=== PATIENT | male | born 1955 | race Caucasian/White ===

== ENCOUNTER 2024-10-12 22:30 | Emergency (ER) | payer MEDICARE, SELFPAY ==
[2024-10-12 22:33] VITALS: BP 138/72; PULSE 67; RESP 18; TEMP 36.7; O2SAT 99
[2024-10-12 23:11] VITALS: BP 124/80; PULSE 61; RESP 13; TEMP 36.6; O2SAT 97; O2SAT 98
[2024-10-12] MEDS: dexAMETHasone SOD PHOS INJ 10 MG/ML 1 ML VIAL IM (23:34)
[2024-10-12] MEDS: diphenhydrAMINE HCl INJ 50 MG/ML VIAL IM (23:35)
[2024-10-12] MEDS: FAMOTIDINE 20 MG TABLET PO (23:35)
--- OUTSIDE RECORDS SUMMARY | 2024-10-12 23:48 | XMS_ITS | Referral Summary ---
Author Organization [facility] Address [address] [place] [address] Care Team Providers Care Electric Motor Winders Assembler Name Role Phone Lee Johnson MD Primary Care Provider Encounters Date Type Department Care Team Description 09/20/2024 ACO Quality [facility] Accountable Care Organization [address] [place] [id number] [facility] [place], [place] 09/15/2024 Telephone [facility] Medical [facility] Primary Care at [address] [address] Lee Johnson MD Prior Auth (Medication Mupirocin 2 %) 09/12/2024 10:00 AM CDT Office Visit [facility] Primary [facility] at [address] [address] Bony Rubio MD Cellulitis of hand excluding fingers (Primary Dx); Type 2 diabetes mellitus without complication, without long-term current use of insulin (HCC) 07/13/2024 10:30 AM CDT Office Visit [facility] at [address] [phone] Lee Johnson MD Annual physical exam (Primary Dx); BMI 30.0-30.9,adult; Multiple-type hyperlipidemia; Primary open angle glaucoma (POAG) of left eye, mild stage; Primary open angle glaucoma (POAG) of right eye, moderate stage; Sensorineural hearing loss (SNHL), bilateral; Type 2 diabetes mellitus without complication, without long-term current use of insulin (HCC) from Last 3 Months Allergies No known active allergies Medications dorzolamide-bhavna olol (COSOPT) 22.3-6.8 mg/mL ophthalmic solution Administer 1 drop into both eyes 2 (two) times a day 7 Active latanoprost (XALATAN) 0.005 % ophthalmic solution Administer 1 drop into both eyes nightly 7 Active loratadine (CLARITIN) 10 mg tablet Take 1 tablet (10 mg total) by mouth daily Active fluocinonide (LIDEX) 0.05 % external solution APPLY TOPICALLY TO THE AFFECTED AREA TWICE DAILY NEEDED 3 Active dorzolamide (TRUSOPT) 2 % ophthalmic solution 1 drop 2 (two) times a day 2 Active ketoconazole (NIZORAL) 2 % shampoo 3 Active Vyzulta 0.024 % drops 0.05 mL (1 drop total) nightly 4 Active mometasone (ELOCON) 0.1 % cream Apply topically daily Apply to both ears daily for drainage and itching 45 g 2 5 Active metFORMIN (GLUCOPHAGE) 500 mg tabletIndicatio ns:type 2 diabetes mellitus TAKE 1 TABLET(500 MG) BY MOUTH DAILY WITH BREAKFAST 90 tablet 1 5 Active atorvastatin (LIPITOR) 20 mg tablet TAKE 1 TABLET(20 MG) BY MOUTH DAILY 90 tablet 1 5 Active mupirocin (BACTROBAN) 2 % ointment Apply topically 3 (three) times a day 22 g 5 Active cephalexin (KEFLEX) 500 mg capsule Take 2 capsules (1,000 mg total) by mouth 2 (two) times a day for 10 days 40 capsule 5 09/23/19 25 Active Problems Problem Noted Date Diagnosed Date Sensorineural hearing loss (SNHL), bilateral 09/2022 Chronic eczematous otitis externa of both ears 0 10/06/2022 Bilateral impacted cerumen 06/11/2022 Assessment & Plan (06/11/2022 9:56 PM ULTRASOUND TECH): Avoid ear cleaning techniques Avoid water to ears Follow up in one year or earlier with any drainage Sensorineural hearing loss ( SNHL) of left ear with restricted hearing of right ear 06/11/2022 Assessment & Plan (06/11/2022 9:58 PM ULTRASOUND TECH): Continue hearing aids Acute diffuse otitis externa of left ear 022 Assessment & Plan (06/11/2022 11:42 AM ULTRASOUND TECH): Avoid ear cleaning techniques Avoid water to ears Follow up in one year or earlier with any drainage Medicare annual wellness visit, subsequent 12/06 Type 2 diabetes mellitus wit hout complication, without long-term current use of insulin 05/24/2019 Assessment & Plan (09/12/2024 10:14 AM CDT): Lab Results Component Value Date HGBA1C 5.9 (H) 07/05/2024 HGBA1C 6.0 (H) 01/04/2024 HGBA1C 6.1 (H) 06/29/2023 Lab Results Component Value Date MICROALBUR 0.5 11/25/2020 LDLCALC 103 07/05/2024 CREATININE 0.96 07/05/2024 At goal Continue metformin Pt has never reached A1c of 6.5 Usnure when dx was made Assessment & Plan (02/12/2021 10:27 PM CDT): Lab Results Component Value Date HGBA1C 5.6 11/25/2020 Good control Defers dilation today Assessment & Plan (01/26/2020 1:21 PM CDT): Lab Results Component Value Date HGBA1C 5.7 (H) 05/05/2019 No retinopathy Assessment & Plan (05/24/2019 9:56 PM ULTRASOUND TECH): No retinopathy Hgb A1C= 5.7 CPM Primary open angle glaucoma (POAG) of left eye, mild stage 06/16/2018 Assessment & Plan (07/28/2023 9:09 PM CDT): Excellent intraocular pressure (IOP) on vyzulta and cosopt Evans visual field (HVF) remains RNFL with possible minor progression of inferior polar thinning over period of 3 years, will observe SLT is an option left eye (OS) also CPM Assessment & Plan (02/12/2021 10:27 PM CDT): OCT with ? Sup thinning left eye (OS) over past several years Evans visual field (HVF) stable CPM Assessment & Plan (01/26/2020 1:20 PM CDT): intraocular pressure (IOP) acceptable CPM Evans visual field (HVF) and OCT without change Assessment & Plan (05/24/2019 9:56 PM ULTRASOUND TECH): IOP acceptable in mid-teens with pre-perimetric dz unless documented progression. Assessment & Plan (02/15/2019 4:49 PM CDT): IOP likely acceptable in mid-teens with pre-perimetric dz unless documented progression. Assessment & Plan (06/16/2018 8:53 PM ULTRASOUND TECH): intraocular pressure (IOP) likely acceptable in mid-teens with pre-perimetric dz unless documented progression. 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 Beck Assessment & Plan (02/12/2021 10:26 PM CDT): intraocular pressure (IOP) remains stable in low-mid teens, no change of OCT but Evans visual field (HVF) suggests progression. Hx of long-term fluctuations of visual field (VF) F/U 4 months with repeat Evans visual field (HVF) right eye (OD) Assessment & Plan (01/26/2020 1:20 PM CDT): intraocular pressure (IOP) acceptable on 3 classes Defer SLT OCT and Evans visual field (HVF) stable F/U with Dr. Beck and with me annually for now Assessment & Plan (05/24/2019 9:55 PM ULTRASOUND TECH): IOP excellent today on 3 classes -- recently has had IOP mid teens, were considering SLT, but will hold off for now -- HVF OD stable -- CPM RTC [address] Beck and here in 8 months with OCT, DFE Assessment & Plan (02/16/2019 3:42 PM CDT): ? tmax 21 with avg - sl thick CCT No FH HVF today is borderline reliability, looks slightly worse - note different refractions between visits but this is consistent with his new MRX OCT stable IOP is better today- discussed repeat SLT (last done 4 years ago) to flatten his IOP curve as he has been running higher than this previously on the same regimen Continue xalatan/cosopt both eyes (OU) F/U 2-3 months with repeat Evans visual field (HVF) right eye (OD) Assessment & Plan (06/16/2018 8:53 PM ULTRASOUND TECH): ? tmax 21 with avg - sl thick CCT No FH ? Progression at mid-teens. Need to review Dr. Beck's visual field (VF) and OCT CPM for now ? Repeat SLT if improvement Pt to call in 2 wks to F/u with report Multiple-type hyperlipidemia 09/09/2013 Overview (08/01/2016): MIXED HYPERLIPIDEMIA Atopic rhinitis 04/07/2012 Overview (08/01/2016): ALLERGIC RHINITIS NOS Resolved Problems Problem Noted Date Diagnosed Date Resolved Date Prediabetes 02/14/2019 12/06/2020 Assessment & Plan (02/14/2019 9:02 AM CDT): Hemoglobin A1c at 5.8% when recently checked on 01/21/2019. Given visual disturbances, progressive glaucoma concerns motor vehicle emissions inspector recommending treatment for pre DM with metformin 500 mg q.day. Dietary and exercise modifications were strongly encouraged lifestyle changes alone would be able to improve visual disturbances if related to DM. S/Es of medication was discussed (including concerns of looser stools). Adding on hemoglobin A1c and urine with micro in 3 months with labs scheduled on 05/05/2019. Immunizations Immunization Administration Dates Next Due Influenza, Quad, Adjuvantate d, Intramuscular 03/05/2022 Influenza, Quadrivalent, Hig h Dose, Preservative Free, Intrr 01/07/2023 Influenza, Quadrivalent, Spl it, Intramuscular 04/10/2016,01/31/2010 Influenza, Quadrivalent, Spl it, Preservative Free, Intramuscular 03/11/2021,03/05/2020,02/10/2018 Influenza, Split 01/31/2010 Influenza, Trivalent, High D ose, Split, Preservative Free, Intramuscular 01/14/2024 Influenza, Trivalent, IM (MDV) 02/27/2011 Influenza, Unspecified 12/06/2020(Deferr ed: Patient Refused),01/13/2019,02/08/2018, 017 Pfizer SARS-CoV-2 Monovalent Vaccination (12+ Yrs) PURPLE 07/05/2020,06/06/2020,06/06/2020 Pneumococcal Conjugate PCV 13 12/06/2020 Pneumococcal Conjugate Pcv20 07/08/2023 Tdap 03/05/2020 ZOSTER LIVE 06/20/2015 Social History Tobacco Use Types Packs/Day Years Used Date Smoking Tobacco: Never Smokeless Tobacco: Never Tobacco Cessation:Counseling Given: Not Answered Alcohol Use Standard Drinks/Week Comments Yes 0 (1 standard drink = 0.6 oz pur e alcohol) AUDIT-C Answer Date Recorded Q1: How often do you have a drink containing alcohol? Never 07/08/2023 Q2: How many drinks containi ng alcohol do you have on a typical day when you are drinking? Patient does not drink Q3: How often do you have si x or more drinks on one occasion? 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 [employer] Not on file Not on file Not on file Last Filed Vital Signs Vital Sign Reading Time Taken Comments Blood Pressure 104/70 09/12/2024 9:57 AM CDT Pulse 60 09/12/2024 9:57 AM CDT Temperature 36.4 C (97.5 F) 07/13/2024 10:27 AM CDT Respiratory Rate 16 09/12/2024 9:5 7 AM CDT Oxygen Saturation 98% 09/12/2024 9:57 AM CDT Inhaled Oxygen Concentration - - Weight 108.8 kg (239 lb 14.4 oz) 09/12/2024 9:57 AM CDT Height 190.5 cm (6' 3) 09/12/2024 9:57 AM CDT Body Mass Index 29.99 09/12/2024 9:57 AM CDT Plan of Treatment Not on file Procedures Procedure Name Priority Date/Time Associated Diagnosis Comments EGFR Routine 07/05/2024 8:33 AM CDT Type 2 diabetes mellitus without complication, without long-term current use of insulin (HCC) HEMOGLOBIN A1C Routine 07/05/2024 8:33 AM CDT Type 2 diabetes mellitus without complication, without long-term current use of insulin (HCC) LIPID PANEL Routine 07/05/2024 8:33 AM CDT Type 2 diabetes mellitus without complication, without long-term current use of insulin (HCC) Multiple-type hyperlipidemia ALBUMIN CREATININE RATIO, URINE Routine 07/05/2024 8:33 AM CDT Type 2 diabetes mellitus without complication, without long-term current use of insulin (HCC) PSA SCREEN Routine 07/05/2024 8:33 AM CDT Urine frequency DIABETIC EYE EXAM Routine 02/28/2024 COLONOSCOPY IMAGES 06/29/2016 SERUM HEPATITIS C AB Routine 03/29/2014 7:40 AM ULTRASOUND TECH from Last 3 Months or Most Recently Relevant to Health Maintenance Results * eGFR (07/05/2024 8:33 AM CDT) eGFR 86 >=60 mL/min/1. 73 m2 Comment: Interpretive Data Reference Interval Normal >/= 90 mL/min/1.73m2 Mildly decreased* 60 - 89 mL/min/1.73m2 Mildly to moderately decreased 45 - 59 mL/min/1.73m2 Moderately to severely decreased 30 - 44 mL/min/1.73m2 Severely decreased 15 - 29 mL/min/1.73m2 Kidney Failure < 15 mL/min/1.73m2 *Relative to young adult level Estimated glomerular filtration rate is determined by the 2020 CKD-EPI equation recommended by the National Kidney Foundation (A Unifying Approach to GFR Estimation: Recommendations of the NKF-ASK Task Force on Reassessing the Inclusion of Race in Diagnosing Kidney Disease, JASN 2020). The CKD-EPI equation should not be used for patients with unstable renal function and has not been validated in children and those over 70. Current interpretive data was last reviewed 2021. Blood 07/05/2024 8:33 AM CDT 07/05/2024 7:12 PM CDT us Lee Johsnon MD LAB BLOOD ORDERABLES Fi nal Result [facility] [id number] Department [place] [address] * PSA screen (07/05/2024 8:33 AM CDT) PSA-Total 2.52 <=5.40 ng/mL Comment: Interpretive Data AGE SEX REFERENCE INTERVAL 0 minutes-150 years Female None 0 minutes-49 years Male None 50-59 years Male 0-3.90 60-69 years Male 0-5.40 70-79 years Male 0-6.20 80-150 years Male 0-6.20 The Sunshine PSA Total assay procedure was used. Results from different manufacturers or methods may not be comparable. Serial testing should be performed using the same method. Current interpretive data last revised 21. Blood 07/05/2024 8:33 AM CDT 07/05/2024 7:06 PM CDT Lee Johnson MD LAB BLOOD ORDERABLES Fi nal Result Performing Organization Address [facility] de Phone Number [facility] [address] [place], [place] [id number] * Albumin Creatinine Ratio, Urine (07/05/2024 8:33 AM CDT) Albumin Ur <12.0 mg/L Comment: Interpretive Data No reference range established. Current interpretive data was last revised 2018. Creatinine Ur 103.9 mg/dL [facility] Comment: Interpretive Data No reference range established. Current interpretive data was last revised 2018. Albumin Creatinine Ratio, Ur <12 1 - 29 mg/g [facility] Urine 07/05/2024 8:33 AM CDT 07/05/2024 7:06 PM CDT Lee Johnson MD LAB URINE ORDERABLES Fi nal Result Performing Organization Address [facility] de Phone Number [facility] [id number] [address] [facility] [place] [address] * (ABNORMAL) Hemoglobin A1c (07/05/2024 8:33 AM CDT) Hgb A1C 5.9(H) 4.0 - 5.6 % Estimated Average Glucose 123 mg/dL [facility] Comment: The ADA recommends reporting an estimated Average Glucose (eAG) with all Hemoglobin A1c results using the equation derived from a study of 507 normal and diabetic adults. Minority populations were underrepresented and children were not included. (Diabetes Care 31:3925-4151, 2008). The eAG is not equivalent to a fasting glucose. Blood 07/05/2024 8:33 AM CDT 07/05/2024 7:06 PM CDT Lee Johnson MD LAB BLOOD ORDERABLES Fi nal Result [facility]B[id number] [place] [address] * Lipid panel (07/05/2024 8:33 AM CDT) Cholesterol 167 30 - 199 mg/dL Comment: Interpretive Data Ages < or = 19 years Acceptable: <170 mg/dL Borderline high: 170-199 mg/dL High: >or= 200 mg/dL Ages > or = 20 years Desirable: <200 mg/dL Borderline high: 200-239 mg/dL High: >or= 240 mg/dL Literature References: 1. Expert Panel on Integrated Guidelines for Cardiovascular Health and Risk Reduction in Children and Adolescents. Pediatrics 2011;128:S213 2. NCEP Expert Panel. Circulation 2004;110:227 Current Interpretive Data was last revised on 2017. Triglycerides 94 <=149 mg/dL [facility] ROBBINS Comment: Interpretive Data Ages < or = 9 years Acceptable: <75 mg/dL Borderline high: 75-99 mg/dL High: >or= 100 mg/dL Ages 10 to 20 years Acceptable: <90 mg/dL Borderline high: 90-129 mg/dL High: >or= 130 mg/dL Ages > or = 20 years Desirable: <150 mg/dL Borderline high: 150-199 mg/dL High: 200-499 mg/dL Very high: >or= 499 mg/dL Literature References: 1. Expert Panel on Integrated Guidelines for Cardiovascular Health and Risk Reduction in Children and Adolescents. Pediatrics 2011;128:S213 2. NCEP Expert Panel. Circulation 2004;110:227 Current Interpretive Data was last revised on 2017. HDL 47 >=40 mg/dL [facility] ROBBINS Comment: Interpretive Data Ages < or = 19 years Acceptable: >45 mg/dL Borderline low: 40-45 mg/dL Low: <40 mg/dL Ages > or = 20 years Desirable: >or= 60 mg/dL Low: <40 mg/dL Literature References: 1. Expert Panel on Integrated Guidelines for Cardiovascular Health and Risk Reduction in Children and Adolescents. Pediatrics 2011;128:S213 2. NCEP Expert Panel. Circulation 2004;110:227 Current Interpretive Data was last revised on 2017. LDL, calculated 103 <=129 mg/dL [facility] ROBBINS Comment: Interpretive Data Ages < or = 19 years Acceptable: <110 mg/dL Borderline high: 110-129 mg/dL High: >or= 130 mg/dL Ages > or = 20 years Optimal: <100 mg/dL Near optimal: 100-129 mg/dL Borderline high: 130-159 mg/dL High: >160 mg/dL Calculated using the Javier LDL-C estimating equation. This equation was implemented on 2023. Prior to this date LDL-C was estimated using the Friedewald equation. Literature References: 1. Expert Panel on Integrated Guidelines for Cardiovascular Health and Risk Reduction in Children and Adolescents. Pediatrics 2011;128:S213 2. NCEP Expert Panel. Circulation 2004;110:227 3. Javier Elizondo et al. TASHIA Cardiol. 2019August 24;5(5):540-548. doi: 10.1001/jamacardio.2020.0013 Current Interpretive Data was last revised on 2023. Non-HDL Cholesterol 120 mg/dL [facility] ROBBINS Comment: Interpretive Data Ages < or = 19 years Acceptable: <120 mg/dL Borderline high: 120-144 mg/dL High: >145 mg/dL Ages > or = 20 years When triglycerides are >200 mg/dL, Non-HDL cholesterol is a secondary target of therapy with treatment goals that are 30 mg/dL greater than the LDL cholesterol target. Literature References: 1. Expert Panel on Integrated Guidelines for Cardiovascular Health and Risk Reduction in Children and Adolescents. Pediatrics 2011;128:S213 2. NCEP Expert Panel. Circulation 2004;110:227 Current Interpretive Data was last revised on 2017. Chol/HDL ratio 4 [facility] ROBBINS Blood 07/05/2024 8:33 AM CDT 07/05/2024 7:06 PM CDT Narrative ROS[facility] ROBBINS - 07/05/2024 7:50 PM CDT Has the patient been fasting for 8 hours or more?->Yes Lee Johnson MD LAB BLOOD ORDERABLES Fi nal Result [facility] [id number] [place] [address] * Diabetic Eye Exam (02/28/2024) us Generic External Data Provider HEALTH MAINTENANC E Final Result * COLONOSCOPY IMAGES (06/29/2016) Anatomical Region Laterality Modality Other Narrative 06/29/2016 Ordered by an unspecified provider. Historical Provider GI PROCEDURE ORDERABLES F inal Result * Serum Hepatitis C ab (03/29/2014 7:40 AM ULTRASOUND TECH) HCV ab Negative Negative HISTORICAL RESULTS Serum 03/29/2014 7:40 AM ULTRASOUND TECH Lee Johnson MD LAB BLOOD ORDERABLES Fi nal Result Performing Organization Address [facility] Co de Phone Number HISTORICAL RESULTS from Last 3 Months or Most Recently Relevant to Health [place] [address] AET MEDICARE [facility] MEDICARE [facility] MEDICARE Care Teams Electric Motor Winders Assembler Relationship Specialty Start Date End Date Lee Johnson MD PCP - General 07/24/16
--- OUTSIDE RECORDS SUMMARY | 2024-10-12 23:49 | XMS_ITS | Encounter Summary ---
Author Organization [facility] Address [address] [place] [address] Phone Care Team Providers Care Carrier Operator Name Role Phone Lee Johnson MD Primary Care Provider Encounter Details Date Type Department Care Team (Late st Contact Info) Description 04/30/2017 Orders Only [facility] ProviderRupesh [place] [address] Social History Tobacco Use Types Packs/Day Years Used Date Smoking Tobacco: Never Smokeless Tobacco: Never Alcohol Use Standard Drinks/Week Comments Yes 0 (1 standard drink = 0.6 oz pur e alcohol) Sex and Gender Information Value Date Recorded Sex Assigned at Not on file Legal Sex Male 4:16 PM SKIDWAY MAN Gender Identity Not on file Sexual Orientation Not on file documented as of this encounter Plan of Treatment Not on file documented as of this encounter Procedures Procedure Name Priority Date/Time Associated Diagnosis Comments DISCHARGE LABORATORY CUMULATIVE REPORT 04/30/2017 12:00 AM SKIDWAY MAN documented in this encounter Results * DISCHARGE LABORATORY CUMULATIVE REPORT (04/30/2017 12:00 AM SKIDWAY MAN) Narrative 04/30/2017 12:00 AM SKIDWAY MAN Ordered by an unspecified provider. Historical Provider LAB BLOOD ORDERABLES Tari l Result documented in this encounter Visit Diagnoses Not on filedocumented in this encounter Additional Health Concerns Infection Onset Date Last Indicated Resolved Time COVID: Suspected 01/02/2022 01/02/2022 01/02/2022 7:05 PM CDT COVID: Suspected 01/02/2022 01/02/2022 01/02/2022 7:07 PM CDT COVID19 01/02/2022 01/02/2022 01/12/2022 3:05 AM CDT COVID: Recovered Comment:Added based on recent COVID infection. 01/12/2022 01/12/2022 05/12/2022 3:[address] documented as of this encounter Care Teams Carrier Operator Relationship Specialty Start Date End Date Lee Johnson MD PCP - General 07/24/16 documented as of this encounter
--- OUTSIDE RECORDS SUMMARY | 2024-10-12 23:49 | XMS_ITS | Continuity of Care Document ---
Author Organization [facility] [place] [address] [place] [address] Phone Care Team Providers Care Framing Consultant Name Role Phone Tommy Beck MD, MD Unavailable Unavailab le Allergies, Adverse Reactions, Alerts Substance Reaction Status Criticality levonorgestrel Active No Informatio n ethinyl estradiol Active No Informa tion Medications Medication Instructions Dosage Effective Dates (start - stop) Status Comments dorzolamide-timolol 2 %-0.5 % eye drops instill 1 drop by ophthalmic route 2 times every day into both eyes 1 drop - Active atorvastatin 10 mg tablet take 1 tablet by oral route every day 10 MG - Active Procedures Procedure Date Post-op Follow-up Visit Post-op Follow-up Visit Post-op Follow-up Visit Laser Surgery Of Eye Post-op Follow-up Visit Laser Surgery Of Eye Eye Exam, New Patient Corneal Pachymetry Special Eye Evaluation Advance Directives Directive Yes / No Effective Date File Name No Information Encounters Encounter Description Practice Location Reason(s) For Visit Diagnoses Date Provider Providers Copied on Encounter [facility], [address], [place], [place], [id number], [place] tel:[phone] SEC Milam SARAH Professional F/u exam, postop (chief complaint) Follow-up examination after surgery -201 5 Ebony Sanders. [address], [address], [place], [place], [facility], . tel:[phone] Referring Provider: Brandy Dyson, [address], [address]. tel:[phone] [facility], [address] [place] [address] [address], [place], [place], [id number], tel:[phone] SEC Milam [place] Professional F/u exam, postop (chief complaint) Follow-up examination after surgery 5 Ebony Sanders. [address], [address] [facility], [place], [place], [facility], [place]. tel:[phone] Referring Provider: Brandy Dyson, [address], [address]. tel:[phone] [facility], [address] [place] [address] [address], [place], [place], [id number], [place] tel:[phone] SEC Harinder [place] Professional Procedure (chief complaint) Primary open angle glaucoma 5 Ebony Sanders. [address], [address] [place] [address], [facility], [place]. tel:[phone] Referring Provider: Brandy Dyson, [address], [address]. tel:[phone] [facility], [address] [place] [address] [address], [place], [place], [id number], tel:[phone] SEC Harinder [place] Professional F/u exam, postop (chief complaint) Follow-up examination after surgery 5 Ebony Sanders. [address], [address], [place], [facility], [place]. tel:[phone] Referring Provider: Brandy Dyson, [address], [address]. tel:[phone] [facility], [address] [place] [address] [address], [place], [place], [id number], tel:[phone] SEC Harinder SMITH Professional SLT (chief complaint) Primary open angle glaucomaMode rate stage glaucoma Ebony Sanders. [address] [facility], [address], [place], [address], . tel:[phone] Referring Provider: Brandy Dyson, [address], [address]. tel:[phone] [facility], [address] [place] [address] [address], [place], [id number], tel:[phone] SEC Harinder SMITH Professional Glaucoma Evaluation (chief complaint) Primary open angle glaucomaMode rate stage glaucoma 4 Ebony Sanders. [address] [facility], [address] [place] [address], [address], . tel:[phone] Referring Provider: Brandy Dyson, [address], [address]. tel:[phone] [facility], [address] [place], [place] [address], [place], [id number], tel:[phone] SEC Harinder SMITH Professional No Information 4 Grayson Lawson. [address] [facility] [place], [id number], [place]. tel:[phone] Family History Family Member Type Diagnosis Age At Onset Father Problem (finding) diabetes melli tus in first degree relative Paternal grandfather Problem (finding) Diabetes mellit Payers Payer name Insurance type Covered democrat ID Authoriza tion(s) No Information Social History Type Description Quantity Date Captured Comments Alcohol Use Details Unknown Caffeine Use Details Unknown Tobacco Use Status No Information Smoking Status No Information Sex Male Chief Complaint And Reason For Visit From encounter dated '09/19/2014 08:30'. F/u exam, postop (chief complaint). Description: The 59 year old male presents for a 1 month f/u toSLT OD. Pt denies any problems. Pt is using Dorzolamide BID OU. Reason For Referral Reason For Referral No Information History Of Present Illness Encounter Date Complaint History Of Prese nt Illness F/u exam, postop The 59 year old male presents for a 1 month f/u to SLT OD. Pt denies any problems. Pt is using Dorzolamide BID OU. F/u exam, postop The 59 year old male presents for a 1 week follow s/p SLT OD. Patient uses Dorzolamide bid ou. Procedure The 59 year old male presents for a SLT OD and IOP check ou. Patient uses Dorzolamide bid ou. F/u exam, postop Patient present s for a 2 week post op SLT OS. Patient is using Dorzolamide bid ou. Patient states os is doing good. SLT The 59 year old male presents for SLT OS. HX POAG. Pt states the last time he used Travatan was on Wednesday night and Cosopt yesterday AM. Instilled 1 drop of Alphagan prior to SLT. Glaucoma Evaluation The 58 year old male presents for Glaucoma Evaluation. Patient states vision is stable. Patient denies any pain or discomfort at this time. Patient wears Prescription glasses. Functional Status Date Functional Assessmen t No Information Instructions Date Instruction Additional Infor melissa - PRN Related to See l ist of assessments above - Discussed diagnosi s in detail with pt. Great results with SLT. IOP well controlled. Advised pt to discontinue Dorzolamide. Schedule appt with Dr. Beck for an IOP check in 3-4 weeks. RTC as needed. Letter sent to Dr. Beck. Related to See list of assessments above - Return in 1 month with Tommy Beck M.D. for IOP check Related to Follow-up examination after surgery - Good results after SLT OD. Return to clinic in 1 month, if IOP is stable will consider discontinuing drops at that time Related to Follow-up examination after surgery - SLT discussed with pt r-a-b of procedure discussed proceed as schedled with SLT. Return to clinic in 3-7 days for post op or sooner with any problems. Patient tolerated procedure well. Related to Primary open angle glaucoma - Return in 1 week w jannette Beck M.D. for post op exam Related to Primary open angle glaucoma - Return in 4 weeks with Tommy Beck M.D. for , IOP check Related to See list of assessments above - Good results after SLT OS. Will continue to monitor. Return to clinic in 4 weeks; 10 days prior to visit stop Dorzolamide OS. If IOP is stable will consider SLT OD. Related to See list of assessments above - RTC in 1-2 weeks f or post op to SLT OS Related to See list of assessments above - Discussed diagnosi s in detail with patient. Discussed risks and benefits of SLT OS and patient understands. Will proceed with laser today. RTC in 1-2 weeks for post op to SLT OS. Related to See list of assessments above Primary open angle g laucoma - Educational material given Related to Primary open angle glaucoma - Schedule SLT OS Related to See list of assessments above - Discussed diagnosi s in detail. Patient understands. Visual dow indicate nasal step OD. Discussed selective laser trabeculoplasty as an option. Reviewed risks and benefits of selective laser trabeculoplasty including 20% chance of laser not reducing intraocular pressure and continued need for eye drops. Patient elects to schedule SLT OS first then OD. Dictated letter to patient for future care. Related to See list of assessments above Assessments Type Assessment Date assessment Follow-up examination after surg latricia Patient Care Teams Name Effective Dates (start - stop) Status Members No Information
--- OUTSIDE RECORDS SUMMARY | 2024-10-12 23:49 | XMS_ITS | Clinical Summary ---
Author Organization [facility] Address [address] [facility] [place] [address] Care Team Providers Care Program Services Assistant Name Role Phone Lee Johnson MD Primary Care Provider Source Comments [facility],non-owned Affiliates and Associated Physician Practices is amultiple site organization consisting of ambulatory clinics and hospital sitesin [place], [place]. This disclosure is being madepursuant to the Care Everywhere program and may not contain all information available regarding this patient. Last updated 18.[facility] Allergies No known active allergies Medications * Be aware that medications may not be up to date on this document. Alwaysverify current medications with the patient. latanoprost (XALATAN) 0.005 % ophthalmic solution 6 08/17/2016 Active atorvastatin (LIPITOR) 20 MG tablet 3 08/17/2016 Active dorzolamide-bhavna olol (COSOPT) 22.3-6.8 MG/ML ophthalmic solution 4 08/26/2016 Active loratadine (CLARITIN) 10 MG tablet Take 1 (one) tablet by mouth once daily Active METFORMIN HCL PO Active atorvastatin (Lipitor) 20 MG tablet Take 1 (one) tablet by mouth once daily 03/25/2020 Active dorzolamide (Trusopt) 2 % ophthalmic solution 1 (one) drop 2 times daily BOTH EYES 07/18/2021 Active loratadine (Claritin) 10 MG tablet Take 1 (one) tablet by mouth once daily 06/04/2020 Active metFORMIN (Glucophage) 500 MG tablet 07/03/2022 Activ e fluocinonide (Lidex) 0.05 % solution Apply to affected areas twice daily prn. 30 days supply. 60 mL 11 10/03/2022 Active ketoconazole (Nizoral) 2 % shampooIndicati ons:Other seborrheic dermatitis Apply to wet hair & ear, leave on for 3-5 minutes, then rinse; three times weekly. 30 days supply 120 mL 11 07/11/2024 Active Active Problems Problem Noted Date Diagnosed Date Other seborrheic dermatitis 08/09/2022 Xerosis cutis 06/07/2020 Assessment & Plan (06/07/2020 4:23 PM CATERERS HELPER): - Encouraged frequent moisturizing with bland emollients - Avoid irritating, fragrant, or drying products - Dry skin care handout given Lopez angioma 06/07/2020 Assessment & Plan (06/07/2020 4:23 PM CATERERS HELPER): - Benign, reassured patient. History of actinic keratoses 06/11/2019 Melanocytic nevi of trunk 06/11/2019 Assessment & Plan (06/07/2020 4:24 PM CATERERS HELPER): - No atypical or concerning moles on exam today - Reviewed ABCDEs of melanoma - Sun protection reviewed, handout provided - Annual FBSE recommended Type 2 diabetes mellitus wit hout complication, without long-term current use of insulin 05/24/2019 Overview (06/07/2020): Last Assessment & Plan: Lab Results Component Value Date HGBA1C 5.7 (H) 05/05/2019 No retinopathy Skin tag 12/08/2018 Rash and other nonspecific skin eruption 019 Actinic keratoses 06/03/2018 Other viral warts 05/23/2017 Overview (07/26/2017): 1 scalp vertex, 1 left neck, one left forehead History of nonmelanoma skin cancer 05/23/2017 Solar lentiginosis 05/23/2017 Assessment & Plan (06/07/2020 4:24 PM CATERERS HELPER): - Benign, patient reassured - Skin cancer, sun protection, and photoaging discussed - Sunscreen handout provided Seborrheic keratoses 09/08/2016 Assessment & Plan (06/07/2020 4:24 PM CATERERS HELPER): - Benign, reassured patient. Neoplasm of uncertain behavior of skin 7 Primary open angle glaucoma (POAG) of right eye, moderate stage 09/09/2013 Overview (06/07/2020): Last Assessment & Plan: intraocular pressure (IOP) acceptable CPM Evans visual field (HVF) and OCT without change GLAUCOMA NOS Last Assessment & Plan: intraocular pressure (IOP) acceptable on 3 classes Defer SLT OCT and Evans visual field (HVF) stable F/U with Dr. Beck and with me annually for now Immunizations Immunization Administration Dates Next Due INFLUENZA VACCINE, TRIV. (AF LURIA, FLUZONE TRIVALENT; 6MO+) (IIV3) 02/27/2011 FLU VACCINE QUAD IIV4 SPLIT 0.25 ML IM 04/10/2016 INFLUENZA VACCINE 03/10/2022, 9,02/08/2018,2016 INFLUENZA VACCINE, QUADR. (A FLURIA, FLUZONE QUADRIVALENT; 6MO+) (IIV4) 01/31/2010 INFLUENZA VACCINE, QUADR. (F LUZONE; FLULAVAL; FLUARIX; AFLURIA QUADRIVALENT; 6MO+), 0.5 ML (IIV4) 03/05/2020,02/10/2018 TDAP (7yrs+) 03/05/2020 ZOSTER VACCINE, LIVE 06/20/2015 Family History Medical History Relation Name Comments Allergy (Severe) Neg Hx Asthma Neg Hx CVA Neg Hx Cancer Neg Hx Cancer - Breast Neg Hx Cancer - Other Neg Hx Cancer - Skin, Melanoma Neg Hx Cancer - Skin, Non Melanoma Neg Hx Eczema Neg Hx Hemophilia Neg Hx Psoriasis Neg Hx Rashes/Skin Problems Neg Hx Social History Tobacco Use Types Packs/Day Years Used Date Smoking Tobacco: Never Smokeless Tobacco: Never Tobacco Cessation:Counseling Given: Not Answered Alcohol Use Standard Drinks/Week Comments Yes 0 (1 standard drink = 0.6 oz pur e alcohol) Sex and Gender Information Value Date Recorded Sex Assigned at Not on file Legal Sex Male 5:33 PM CATERERS HELPER Gender Identity Not on file Sexual Orientation Not on file Last Filed Vital Signs Vital Sign Reading Time Taken Comments Blood Pressure 124/82 04/01/2020 3:16 PM CATERERS HELPER Pulse 71 04/01/2020 3:16 PM CATERERS HELPER Temperature 36.6 C (97.8 F) 04/01/2020 3:16 PM CATERERS HELPER Respiratory Rate 16 04/01/2020 3:16 PM CATERERS HELPER Oxygen Saturation 98% 04/01/2020 3:16 PM CATERERS HELPER Inhaled Oxygen Concentration - - Weight 104.3 kg (230 lb) 04/01/2020 3:16 PM CATERERS HELPER Height 193 cm (6' 4) 04/01/2020 3:16 PM CATERERS HELPER Body Mass Index 28 04/01/2020 3:16 PM CATERERS HELPER Plan of Treatment Upcoming Encounters Date Type Department Care Team (Late st Contact Info) Description 07/13/2025 1:00 PM CDT Office Visit [facility] - Dermatology [address] [place] [address], [place] [address] Antonio Curry MD [address] [place] [address] [address] [place] [address] Health Maintenance Due Date Last Done Comments COLOGUARD (AGES 45-75) - COLON CA SCREENING 1955 COLON MONITORING 1955 COLONOSCOPY - COLON CA SCREENING 1955 CT COLONOGRAPHY - COLON CA SCREENING 1955 Colorectal Cancer Screening 1955 FIT - COLON CA SCREENING 1955 FLEX SIG - COLON CA SCREENING 1955 HEPATITIS C SCREENING 04/23/1973 PNEUMOCOCCAL VACCINE 50+ (1 of 2 - PCV) 1974 ZOSTER VACCINE (2 of 3) 08/15/2015 06/20/2015 DIABETES-FOOT EXAM WITH MONOFILAMENT 06/07/2020 DIABETES RETINOPATHY SCREENING 01/23/2022 01/24/2020, 05/24/2019, 02/15/2019 DIABETES-SERUM CREATININE 12/23/2023 12/22/2022, 10/2022 COVID-19 VACCINE ( season) 2023 07/05/2020, 06/06/2020 DEPRESSION SCREENING 04/26/2024 DIABETES - URINE PROTEIN SCREENING 04/26/2024 06/02/2022 MEDICARE AWV CALENDAR YEAR 2024 DIABETES-HGB A1C 01/05/2025 07/05/2024, 08/2023, 12/22/2022, Additional history exists DTAP/TDAP/TD VACCINES (2 - Td or Tdap) 03/05/2030 03/05/2020 Respiratory Syncytial Virus (RSV) Vaccine Pt: or over 60 yrs (1 - 1-dose 75+ series) 2030 INFLUENZA VACCINE Completed 01/14/2024, , 03/11/2021, Additional history exists HEPATITIS B VACCINE Aged Out No longe r eligible based on patient's age to complete this topic HIB VACCINE Aged Out No longer eligi ble based on patient's age to complete this topic HPV VACCINE Aged Out No longer eligi ble based on patient's age to complete this topic MENINGOCOCCAL (Group B) VACCINE SHARED DECISION-MAKING Aged Out No longer eligible based on patient's age to complete this topic MENINGOCOCCAL GROUPS A/C/Y/W VACCINE Aged Out No longer eligible based on patient's age [place] [address] [employer] MEDICARE ADV [employer] Care Teams Program Services Assistant Relationship Specialty Start Date End Date Lee Johnson MD [address] [address] PCP - General 05/21/14
--- OUTSIDE RECORDS SUMMARY | 2024-10-12 23:49 | XMS_ITS | Clinical Summary ---
Author Organization [facility] Address [address] [place] [address] Care Team Providers Care Supervisor Wet Pour Name Role Phone Lee Johnson MD Primary Care Provider Allergies No known active allergies Medications dorzolamide-bhavna [...] MOUTH DAILY WITH BREAKFAST 90 tablet 1 04/21/202 5 Active atorvastatin (LIPITOR) 20 mg tablet [...] 06/11/2022 Assessment & Plan (06/11/2022 9:56 PM LEVEL VIAL INSIDE GRINDER): Avoid ear cleaning techniques Avoid water to ears Follow up in one year or earlier with any drainage Sensorineural hearing loss ( SNHL) of left ear with restricted hearing of right ear 06/11/2022 Assessment & Plan (06/11/2022 9:58 PM LEVEL VIAL INSIDE GRINDER): Continue hearing aids Acute diffuse otitis externa of left ear 022 Assessment & Plan (06/11/2022 11:42 AM LEVEL VIAL INSIDE GRINDER): Avoid ear cleaning techniques Avoid water to [...] retinopathy Assessment & Plan (05/24/2019 9:56 PM LEVEL VIAL INSIDE GRINDER): No retinopathy Hgb A1C= 5.7 CPM Primary [...] change Assessment & Plan (05/24/2019 9:56 PM LEVEL VIAL INSIDE GRINDER): IOP acceptable in mid-teens with pre-perimetric dz unless documented progression. Assessment & Plan (02/15/2019 4:49 PM CDT): IOP likely acceptable in mid-teens with pre-perimetric dz unless documented progression. Assessment & Plan (06/16/2018 8:53 PM LEVEL VIAL INSIDE GRINDER): intraocular pressure (IOP) likely acceptable in mid-teens [...] now Assessment & Plan (05/24/2019 9:55 PM LEVEL VIAL INSIDE GRINDER): IOP excellent today on 3 classes -- [...] (OD) Assessment & Plan (06/16/2018 8:53 PM LEVEL VIAL INSIDE GRINDER): ? tmax 21 with avg - sl [...] 01/21/2019. Given visual disturbances, progressive glaucoma concerns housekeeping supervisor hotel recommending treatment for pre DM with metformin 500 mg q.day. Dietary and exercise modifications were strongly encouraged lifestyle changes alone would be able to improve visual disturbances if related to DM. S/Es of medication was discussed (including concerns of looser stools). Adding on hemoglobin A1c and urine with micro in 3 months with labs scheduled on 05/05/2019. Encounters Date Type Department Care Team Description 09/20/2024 ACO Quality [facility] Accountable Care Organization [address] [place] [id number] Zina Shetty MA 09/15/2024 Telephone [facility] Medical Group Primary Care at [address] [place] [address] Lee Johnson MD Prior Auth (Medication Mupirocin 2 %) 09/12/2024 10:00 AM CDT Office Visit [facility] Medical [facility] Primary Care at [address] [place] [address] Bony Rubio MD Cellulitis of hand excluding fingers (Primary Dx); Type 2 diabetes mellitus without complication, without long-term current use of insulin (HCC) 07/13/2024 10:30 AM CDT Office Visit [facility] Medical Group Primary Care at [address] [place] [id number] Lee Johnson MD Annual physical exam (Primary Dx); BMI 30.0-30.9,adult; Multiple-type hyperlipidemia; Primary open angle glaucoma (POAG) of left eye, mild stage; Primary open angle glaucoma (POAG) of right eye, moderate stage; Sensorineural hearing loss (SNHL), bilateral; Type 2 diabetes mellitus without complication, without long-term current use of insulin (HCC) from Last 3 Months Immunizations Immunization Administration Dates Next Due Influenza, [...] Pcv20 07/08/2023 Tdap 03/05/2020 ZOSTER LIVE 06/20/2015 Surgical History Surgery Date Site/Laterality Comments MICRODISCECTOMY 04/26/2008 - 04/25/2009 microdiscectomy BACK SURGERY 04/26/2008 - 04/25/2009 Back surgery LASER SURGERY 04/26/2014 - 04/25/2015 Bilateral SLT Medical History Medical History Date Comments Hx Other Medical mild BPH Hx Other Medical right hand pain Glaucoma Hypercholesteremia HL (hearing loss) 2017 Ear problems 2021 Family History Medical History Relation Name Comments Diabetes Father Killian Diabetes mellit us; Hypertension Father [place] Hypertension; Macular degeneration Father [place] Diabetes Paternal Grandfather Shayne Diabete s mellitus; Relation Name Status Comments Father Killian Paternal Grandfather Shayne Social History Tobacco Use Types Packs/Day Years [...] on file Legal Sex Male 4:16 PM LEVEL VIAL INSIDE GRINDER Gender Identity Not on file Sexual Orientation Not on file 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 [employer] Not on file Not on file Not on file Obstetrics History Last Filed Vital Signs Vital Sign Reading Time Taken Comments Blood Pressure 104/70 09/12/2024 9:57 AM CDT Pulse 60 09/12/2024 9:57 AM CDT Temperature 36.4 C (97.5 F) 07/13/2024 10:27 AM CDT Respiratory Rate 16 09/12/2024 9:57 AM CDT Oxygen Saturation 98% 09/12/2024 9:57 AM CDT Inhaled Oxygen Concentration - - Weight 108.8 kg (239 lb 14.4 oz) 09/12/2024 9:57 AM CDT Height 190.5 cm (6' 3) 09/12/2024 9:57 AM CDT Body Mass Index 29.99 09/12/2024 9:57 AM CDT Plan of Treatment Health Maintenance Due Date Last Done Comments Hepatitis B Screening 1973 Zoster Vaccine (2 of 3) 08/15/2015 06/20/2015 Covid-19 Vaccine (2023-2 5 season) 2023 01/27/2021, 07/05/2020, 06/06/2020, Additional history exists Hemoglobin A1C 01/05/2025 07/05/2024, 12/25, 06/29/2023, Additional history exists Albumin Creatinine Ratio, Urine 07/05/2025 07/05/2024, 06/29/2023, 06/02/2022, Additional history exists Lipid Panel 07/05/2025 07/05/2024, 12/25, 06/29/2023, Additional history exists Prostate Cancer Screening-PSA 07/05/2025, 06/29/2023, 06/02/2022, Additional history exists eGFR 07/05/2025 07/05/2024, 12/25, 06/29/2023, Additional history exists Foot Exam 07/13/2025 07/13/2024, 12/26, 07/08/2023, Additional history exists Well Visit 65+ 07/13/2025 07/13/2024, 06/24, 06/15/2022, Additional history exists Depression Screening 09/12/2025 09/12/2024, 07/13/2024, 01/14/2024, Additional history exists Fall Risk Assessment 09/12/2025 09/12/2024, 07/13/2024, 01/14/2024, Additional history exists Dilated Eye Exam 02/27/2026 02/28/2024, 06/2023, 09/16/2022, Additional history exists Colon Cancer Screening-Colonoscopy 06/29/2026 06/29/2016, 06/29/2016, 06/29/2016 DTaP/Tdap/Td Vaccine (2 - Td or Tdap) 03/05/2030 03/05/2020 Hepatitis C Screening Completed 03/29/2014 Colon Cancer Screening-CT Colonography Discontinued 06/29/2016, 06/29/2016, 06/29/2016 Colon Cancer Screening-DNA Stool Discontinued 06/29/2016, 06/29/2016, 06/29/2016 Colon Cancer Screening-FIT Discontinued 06/29, 06/29/2016, 06/29/2016 Colon Cancer Screening-Sigmoidoscopy Discontinued 06/29/2016, 06/29/2016, 06/29/2016 Pneumococcal vaccine 65+ Completed 07/08/2023, 11/24 Influenza Vaccine Completed 01/14/2024, , 03/05/2022, Additional history exists Procedures Procedure Name Priority Date/Time Associated Diagnosis [...] HEPATITIS C AB Routine 03/29/2014 7:40 AM LEVEL VIAL INSIDE GRINDER from Last 3 Months or Most Recently [...] 8:33 AM CDT 07/05/2024 7:12 PM CDT Lee Johnson MD LAB BLOOD ORDERABLES Fi nal Result Performing Organization Address City/[facility] Co de Phone Number ROSANA ROBBINS [phone] [place] [address] * PSA screen (07/05/2024 8:33 [...] ORDERABLES Fi nal Result Performing Organization Address [facility] Co de Phone Number SOHAILROSANNA ROBBINS [phone] [employer] [place], [place] [id number] * Albumin Creatinine Ratio, Urine (07/05/2024 8:33 AM CDT) Albumin Ur <12.0 mg/L Comment: Interpretive Data No reference range established. Current interpretive data was last revised 2018. Creatinine Ur 103.9 mg/dL [facility] Comment: Interpretive Data No reference range established. Current interpretive data was last revised 2018. Albumin Creatinine Ratio, Ur <12 1 - 29 mg/g ROSANA Urine 07/05/2024 8:33 AM CDT 07/05/2024 7:06 PM CDT Lee Johnson MD LAB URINE ORDERABLES Fi nal Result Performing Organization Address [facility] de Phone Number [facility] [id number] [employer] [place] [address] * (ABNORMAL) Hemoglobin A1c (07/05/2024 8:33 AM CDT) Hgb A1C 5.9(H) 4.0 - 5.6 % Estimated Average Glucose 123 mg/dL ROSANA Comment: The ADA recommends reporting an estimated Average Glucose (eAG) with all Hemoglobin A1c results using the equation derived from a study of 507 normal and diabetic adults. Minority populations were underrepresented and children were not included. (Diabetes Care 31:9386-2677, 2008). The eAG is not equivalent to a fasting glucose. Blood 07/05/2024 8:33 AM CDT 07/05/2024 7:06 PM CDT Lee Johnson MD LAB BLOOD ORDERABLES Fi nal Result Performing Organization Address [facility] de Phone Number [facility] [address] [address] [employer] [place] [address] * Lipid panel (07/05/2024 8:33 AM CDT) [...] on 2017. Triglycerides 94 <=149 mg/dL ROSANA Comment: Interpretive Data Ages < or = [...] on 2017. HDL 47 >=40 mg/dL ROSANA Comment: Interpretive Data Ages < or = [...] 2017. LDL, calculated 103 <=129 mg/dL ROSANA Comment: Interpretive Data Ages < or = 19 years Acceptable: <110 mg/dL Borderline high: 110-129 mg/dL High: >or= 130 mg/dL Ages > or = 20 years Optimal: <100 mg/dL Near optimal: 100-129 mg/dL Borderline high: 130-159 mg/dL High: >160 mg/dL Calculated using the Herrera LDL-C estimating equation. This equation was implemented [...] revised on 2017. Chol/HDL ratio 4 ROSANA Blood 07/05/2024 8:33 AM CDT 07/05/2024 7:06 PM CDT Narrative ROSANA - 07/05/2024 7:50 PM CDT Has the patient been fasting for 8 hours or more?->Yes Lee Johnson MD LAB BLOOD ORDERABLES Fi nal Result ROSANA [id number] [facility] Department [place] [address] * Diabetic Eye Exam (02/28/2024) us Generic External Data Provider HEALTH MAINTENANC E Final Result * COLONOSCOPY IMAGES (06/29/2016) Anatomical Region Laterality Modality Other Narrative 06/29/2016 Ordered by an unspecified provider. Historical Provider GI PROCEDURE ORDERABLES F inal Result * Serum Hepatitis C ab (03/29/2014 7:40 AM LEVEL VIAL INSIDE GRINDER) HCV ab Negative Negative HISTORICAL RESULTS Serum 03/29/2014 7:40 AM LEVEL VIAL INSIDE GRINDER Lee Johnson MD LAB BLOOD ORDERABLES Fi nal Result HISTORICAL RESULTS from Last 3 Months or Most Recently Relevant to Health Maintenance Insurance [facility] [facility] [employer] [facility] [facility] [employer] [facility] [employer] Care Teams Supervisor Wet Pour Relationship Specialty Start Date End Date Lee Johnson MD PCP - General 07/24/16
--- NOTE | 2024-10-12 23:54 | ED.GENADULT ---
HPI - General Adult General Chief complaint: Allergic Reaction Stated complaint: hives Time Seen by Provider: 10/12/24 23:18 History of Present Illness HPI narrative: Patient is a 69-year-old gentleman presents emergency department with chief complaint of allergic reaction. The patient reports that this evening he started developing hives over his body and reports that it is EKG. The patient denies is angioedema denies shortness of breath denies swelling in his mouth or tongue. Related Data Allergies Allergy/AdvReac Type Severity Reaction Status Date / Time No Known Allergies Allergy Verified 10/12/24 22:45 Review of Systems Review of Systems: A 10 system review of systems was completed on the patient and is negative except for what is stated in the HPI. Nursing and ancillary documentation was reviewed. Exam Narrative: GENERAL: Well-appearing, well-nourished, and in no acute distress. HEAD: Normocephalic, atraumatic. EYES: PERRLA and EOMI. ENT: Nares clear, no rhinorrhea or epistaxis. Mucous membranes moist. NECK: Supple. CHEST: Clear to auscultation. No respiratory distress. HEART: Regular rate and rhythm. No murmur heard. Normal peripheral pulses. ABDOMEN: Soft, nontender, nondistended, normal active bowel sounds. EXTREMITIES: Normal range of motion. No edema. SKIN: Warm, dry, generalized urticaria. NEURO: No focal deficits. Alert and oriented x3. PSYCH: Normal mood and affect. Course Vital Signs Vital signs: Vital Signs Temperature 36.7 C 10/12/24 22:33 Pulse Rate 67 10/12/24 22:33 Respiratory Rate 18 10/12/24 22:33 Blood Pressure 138/72 10/12/24 22:33 Pulse Oximetry 99 10/12/24 22:33 Oxygen Delivery Room Air 10/12/24 22:33 Temperature 36.6 C 10/12/24 23:11 Pulse Rate 61 10/12/24 23:11 Respiratory Rate 13 10/12/24 23:11 Blood Pressure 124/80 10/12/24 23:11 Pulse Oximetry 97 10/12/24 23:11 Oxygen Delivery Room Air 10/12/24 23:11 Medical Decision Making [facility] Narrative Medical decision making narrative: Differential diagnosis includes allergic reaction, generalized he Urticaria, patient is not showing signs of anaphylaxis and no signs of airway compromise Vital Signs Vital Signs: Vital Signs Temperature 36.7 C 10/12/24 22:33 Pulse Rate 67 10/12/24 22:33 Respiratory Rate 18 10/12/24 22:33 Blood Pressure 138/72 10/12/24 22:33 Pulse Oximetry 99 10/12/24 22:33 Oxygen Delivery Room Air 10/12/24 22:33 Temperature 36.6 C 10/12/24 23:11 Pulse Rate 61 10/12/24 23:11 Respiratory Rate 13 10/12/24 23:11 Blood Pressure 124/80 10/12/24 23:11 Pulse Oximetry 97 10/12/24 23:11 Oxygen Delivery Room Air 10/12/24 23:11 Discharge Plan Discharge Clinical Impression: Allergic reaction, Urticaria Patient Disposition: Home Condition: Stable Instructions: Antibiotic Form, Urticaria (ED), General Allergic Reaction (ED) Patient Language: Albanian Prescriptions: New prednisone 20 mg tablet 40 mg PO DAILY 5 Days Qty: 10 0RF Follow-up/Referrals: Alex,Lee Hammonds MD [Primary Care Provider] - Time of Disposition: 23:56
[2024-10-13 00:07] VITALS: BP 131/75; PULSE 61; RESP 18; O2SAT 97
== END 2024-10-13 00:08 | disposition home or self-care (01) ==
PROVIDERS: Emergency Provider Emergency Medicine; PCP Internal Medicine
DX: T78.40XA Allergy, unspecified, initial encounter (principal); L50.0 Allergic urticaria; X58.XXXA Exposure to other specified factors, initial encounter
CPT/HCPCS: 96372; 99284; A9270; J1100; J1200